=== PATIENT | male | born 1985 | race American Indian/Alaskan Native ===

== ENCOUNTER 2017-03-30 12:24 | Emergency (ER) | payer SELFPAY ==
--- NOTE | 2017-03-30 17:24 | Emergency Department Report ---
Upper Extremity - HPI Chief Complaint: Extremity Injury, Upper Stated Complaint: RIGHT HAND LACERATION Time Seen by Provider: 03/30/17 17:23 Upper Extremity: Right Thumb, Right Index Finger Occurred When: 1 Day Mechanism: Other (cut with glass object) Severity: mild Symptoms: Yes Pain with Movement, Yes Laceration or Abrasion (visible laceration overlying right index finger MCP joint horizontal approximately 3-4 cm in length), No Deformity, No Limited Range of Movement, No Numbness, No Weakness, No Swelling, No Bruising/Ecchymosis Other History: 31-year-old male past medical history none presents with complaint of lacerating his finger last night at approximately 10 PM while handling a glass bottle while at home. Patient unaware of tetanus status. Denies any significant bleeding states he bandaged it and has a laceration approximately 3-4 cm overlying right MCP area by index finger denies any other injuries. ED Review of Systems ROS: Stated complaint: RIGHT HAND LACERATION Other details as noted in HPI Constitutional: denies: chills, fever Eyes: denies: eye pain, eye discharge, vision change ENT: denies: ear pain, throat pain Respiratory: denies: cough, shortness of breath, wheezing Cardiovascular: denies: chest pain, palpitations Endocrine: no symptoms reported Gastrointestinal: denies: abdominal pain, nausea, diarrhea Genitourinary: denies: urgency, dysuria Musculoskeletal: denies: back pain, joint swelling, arthralgia Skin: denies: rash, lesions Neurological: denies: headache, weakness, paresthesias Psychiatric: denies: anxiety, depression Hematological/Lymphatic: denies: easy bleeding, easy bruising ED Past Medical Hx - Past Medical History Previous Medical History?: No - Surgical History Past Surgical History?: No - Social History Smoking Status: Current Every Day Smoker Substance Use Type: Alcohol, Marijuana - Medications Home Medications: Home Medications Medication Instructions Recorded Confirmed Last Taken Type Bacitracin Zinc [Antibiotic] 1 applicatio TP BID #1 oint...g. 03/30/17 Unknown Rx Cephalexin [Keflex] 500 mg PO Q12HR #14 cap 03/30/17 Unknown Rx Ibuprofen [Motrin] 800 mg PO Q8HR PRN #25 tablet 03/30/17 Unknown Rx Upper Extremity Exam - Exam General: Vital signs noted. No distress. Alert and acting appropriately. Head and Torso: No HEENT Abnormality, No Neck Tenderness, No Chest/Lungs Abnormality, No Abdominal Tenderness, No Back Tenderness Shoulder Exam: Yes Normal Range of Motion in Shoulder, No Shoulder Tenderness, No Clavicle Tenderness, No Shoulder Deformity, No AC Joint Tenderness Arm Exam: No Arm/Humerus Tenderness, No Arm Deformity Elbow: No Elbow Tenderness, No Normal Range of Motion in Elbow, No Elbow Deformity Forearm: No Forearm Tenderness, No Forearm Deformity, No Pain with Pronation, No Pain with Supination Wrist: Yes Normal ROM in Wrist (wrist flexion and extension intact), No Wrist Tenderness, No Wrist Deformity, No Snuffbox Tenderness, No Pain with Axial Thumb Compression Hand: Yes Digit Tenderness (tenderness on the palmar MCP area at right index finger secondary to laceration), Yes Normal ROM in Digit(s) (range of motion DIP PIP and MCP fully intact on clinical exam), No Hand Tenderness, No Hand Deformity, No Digit(s) Deformity, No Tendon Dysfunction CMS Exam: Yes Normal Distal Pulses (distal capillary refill less than 1 second) , Yes Normal Capillary Refill (radial and ulnar pulses intact), Yes Normal Distal Sensation (distal sensation is intact to proprioception and light touch) , No Broken Skin Hand L/R Front: 1 - Vertical laceration here slightly overlying MCP joint on the palmar side approximately 3 cm in length linear minimal to no bleeding ED Course Vital Signs 03/30/17 16:10 Temperature 98.4 F Pulse Rate 97 H Respiratory 18 Rate Blood Pressure 115/70 O2 Sat by Pulse 99 Oximetry - Laceration /Wound Repair Right Distal Finger Wound Location: upper extremity (distal right index finger) Wound's Depth, Shape: superficial, linear Betadine Prep?: Yes Anesthesia: Lidocaine w/ Epi Volume Anesthetic (ccs): 5 Wound Debrided: minimal Wound Repaired With: sutures Suture Size/Type: 5:0, nylon Number of Sutures: 5 Layer Closure?: No ED Medical Decision Making - Medical Decision Making A/P: Right index finger laceration 1-sutures to be removed in 7 days. educated on acute wound care 2-tetanus updated 3-Motrin when necessary, triple antibiotic ointment, keflex course 4- ptadvised to return to the ED for any fevers chills pus drainage erythema at site of laceration Critical care attestation.: If time is entered above; I have spent that time in minutes in the direct care of this critically ill patient, excluding procedure time. ED Disposition Clinical Impression: Finger laceration Qualifiers: Encounter type: initial encounter Finger: index finger Damage to nail status: without damage Foreign body presence: without foreign body Laterality: right Qualified Code(s): S61.210A - Laceration without foreign body of right index finger without damage to nail, initial encounter Disposition: TO HOME OR SELFCARE Is pt being admited?: No Does the pt Need Aspirin: No Condition: Stable Instructions: Suture Care (ED), Finger Laceration (ED) Additional Instructions: Sutures to be removed in 7 days Prescriptions: Bacitracin Zinc [Antibiotic] 1 applicatio TP BID #1 oint...g. Cephalexin [Keflex] 500 mg PO Q12HR #14 cap Ibuprofen [Motrin] 800 mg PO Q8HR PRN #25 tablet PRN Reason: Pain Referrals: [facility] [Outside] - 3-5 Days [facility] [Outside] - 3-5 Days Forms: Accompanied Note, Work/School Release Form(ED) Time of Disposition: 17:50
[2017-03-30] MEDS ORDERED: BOOSTRIX IM ONE (17:54)
[2017-03-30] MEDS ORDERED: TRIPLE ANTIBIOTIC TP ONE (18:25)
[2017-03-30 18:40] VITALS: BP 120/71
== END 2017-03-30 18:37 | disposition home or self-care (01) ==
LOC: ED 12:24
DX: S61.210A Laceration without foreign body of right index finger without damage to nail, initial encounter (principal); F12.10 Cannabis abuse, uncomplicated; F17.200 Nicotine dependence, unspecified, uncomplicated; W45.8XXA Other foreign body or object entering through skin, initial encounter; Y93.9 Activity, unspecified; Y99.9 Unspecified external cause status; Y92.89 Other specified places as the place of occurrence of the external cause
CPT/HCPCS: 90471; 90715; A6250